=== PATIENT | female | born 1980 | race American Indian/Alaskan Native ===

== ENCOUNTER 2019-01-02 12:19 | Inpatient (IN) | payer MEDICAID, OTHER ==
[2019-01-02 12:25] VITALS: BMI 40.6
[2019-01-02] MEDS: Albuterol-Ipratrop 3 mg / 0.5 (3 ml) UD IH SCH ×3 (13:00→13:12)
--- NOTE | 2019-01-02 13:00 | ED PDOC ---
Arrival/HPI - General Chief Complaint: Shortness Of Breath Historian: Patient - History of Present Illness Narrative History of Present Illness (Text): 01/02/19 13:03 38 year old female smoker, with past medical history of diabetes, HTN and rheumatoid arthritis, presents to emergency department with complaints of shortness of breath, cough, chest tightness, and occasional nausea for the past 2 weeks. Patient reports that the symptoms started two weeks ago but improved shortly. She states that 2 days ago, she woke up in the middle of the night unable to breathe and went to [facility] where she was diagnosed with pneumonia. She was given antibiotics for CAP which she has been taking for the past 2 days. Patient also reports experiencing more regular anxiety attacks now. She notes she is currently on metformin BID. Patient denies any fevers, chills, headache, dizziness, abdominal pain, vomiting, diarrhea, back pain, neck pain, or any other complaints. Time/Duration: Other (2 weeks ) Symptom Onset: Gradual Symptom Course: Unchanged Activities at Onset: Light Context: Home Past Medical History - Provider Review Nursing Documentation Reviewed: Yes - Infectious Disease Hx of Infectious Diseases: None - Cardiac Hx Cardiac Disorders: Yes Hx Hypertension: Yes - Pulmonary Hx Respiratory Disorders: No - Neurological Hx Neurological Disorder: No - HEENT Hx HEENT Disorder: No - Renal Hx Renal Disorder: No - Endocrine/Metabolic Hx Endocrine Disorders: Yes Hx Diabetes Mellitus Type 2: Yes - Hematological/Oncological Hx Blood Disorders: No - Integumentary Hx Dermatological Disorder: No - Musculoskeletal/Rheumatological Hx Musculoskeletal Disorders: Yes Hx Rheumatoid Arthritis: Yes - Gastrointestinal Hx Gastrointestinal Disorders: No - Genitourinary/Gynecological Hx Genitourinary Disorders: No - Psychiatric Hx Psychophysiologic Disorder: No Hx Substance Use: No - Surgical History Hx Section: Yes (x1) Other/Comment: right breast - Anesthesia Hx Anesthesia Reactions: No Hx Malignant Hyperthermia: No Family/Social History - Physician Review Nursing Documentation Reviewed: Yes Family/Social History: Unknown Family HX Smoking Status: Current Some Days Smoker Hx Alcohol Use: Yes Hx Substance Use: No Allergies/Home Meds Allergies/Adverse Reactions: Allergies No Known Allergies Allergy (Verified 04/13/16 12:50) Home Medications: Home Meds Medication Instructions Recorded Confirmed Enalapril Maleate [Vasotec] 10 mg PO DAILY 04/13/16 01/02/19 Metformin HCl [Glucophage] 1,000 mg PO BID 04/13/16 01/02/19 amLODIPine [Norvasc] 5 mg PO DAILY 01/02/19 01/02/19 Review of Systems - Physician Review All systems were reviewed & negative as marked: Yes - Review of Systems Constitutional: absent: Fevers Respiratory: SOB, Cough Cardiovascular: Other (chest tightness ) Gastrointestinal: Nausea. absent: Abdominal Pain, Diarrhea, Vomiting Genitourinary Female: absent: Frequency, Hematuria, Urine Output Changes Musculoskeletal: absent: Back Pain, Neck Pain Skin: absent: Rash Neurological: absent: Headache, Dizziness Psychiatric: Anxiety (anxiety attacks ) Physical Exam Vital Signs Reviewed: Yes Vital Signs Temp Pulse Resp BP Pulse Ox 01/02/19 12:20 98.4 F 115 H 20 117/62 96 Temperature: Afebrile Blood Pressure: Normal Pulse: Tachycardic Respiratory Rate: Tachypneic Appearance: Positive for: Well-Appearing, Non-Toxic, Comfortable Pain Distress: None Mental Status: Positive for: Alert and Oriented X 3 - Systems Exam Head: Present: Atraumatic, Normocephalic Pupils: Present: PERRL Extroacular Muscles: Present: EOMI Conjunctiva: Present: Normal Mouth: Present: Moist Mucous Membranes Neck: Present: Normal Range of Motion Respiratory/Chest: Present: Decreased Breath Sounds (coarse breath sounds bilate rally ). No: Respiratory Distress, Accessory Muscle Use, Wheezes, Rales, Rhonchi Cardiovascular: Present: Regular Rate and Rhythm, Normal S1, S2. No: Murmurs Abdomen: No: Tenderness, Distention, Peritoneal Signs Back: Present: Normal Inspection Upper Extremity: Present: Normal Inspection. No: Cyanosis, Edema Lower Extremity: Present: Normal Inspection. No: Edema Neurological: Present: Speech Normal, Motor Func Grossly Intact, Normal Sensory Function Skin: Present: Warm, Dry, Normal Color. No: Rashes Psychiatric: Present: Alert, Oriented x 3, Normal Insight, Normal Concentration Medical Decision Making ED Course and Treatment: 01/02/19 13:13 Impression: 38 year old female presents to emergency department for cough, shortness of breath, and chest tightness since the past 2 weeks. Plan: -- EKG -- Labs -- Chest X-ray -- Apresoline -- Duonebs --Solumedrol --Maxipime --Azithromycin --CTPE --Ativan -- Urinalysis -- Reassess and disposition Prior Visits: Notes and results from previous visits were reviewed. Progress Notes: 01/02/19 13:53 Labs reviewed with no leukocytosis noted. CXR reveals diffuse infiltrates in lower lungs b/l consistent w/ PNA. D-dimer noted to be elevated. CTPE ordered. Case discussed with , who is aware and agrees with plan. 01/02/19 14:[address] scan without test performed due to anxiety and being unable to lie down flat. She states she needs an anxiolytic in order to allow for the test to be performed. - Lab Interpretations Lab Results: 01/02/19 12:52 01/02/19 12:52 Lab Results 01/02/19 13:00: Urine Color Yellow, Urine Appearance Clear, Urine pH 6.0, Ur Specific Irwin >= 1.030, Urine Protein 100 H, Urine Glucose (UA) Negative, Urine Ketones Negative, Urine Blood Small H, Urine Nitrate Negative, Urine Bilirubin Negative, Urine Urobilinogen 0.2, Ur Leukocyte Esterase Negative, Urine RBC 1 - 3 H, Urine WBC None, Ur Epithelial Cells 0 - 2 01/02/19 12:52: Sodium 138, Potassium 3.7, Chloride 104, Carbon Dioxide 27, Anion Gap 11, BUN 12, Creatinine 0.5 L, Est GFR ( Amer) > 60, Est GFR (Non-Af Amer) > 60, Random Glucose 187 H, Calcium 9.1, Total Bilirubin 0.4, AST 114 H, ALT 149 H, Alkaline Phosphatase 107, Total Protein 7.4, Albumin 4.0, Globulin 3.4, Albumin/Globulin Ratio 1.2 01/02/19 12:52: D-Dimer, Quantitative 502 H 01/02/19 12:52: WBC 11.0, RBC 4.77, Hgb 13.2, Hct 40.7, MCV 85.3, MCH 27.7, MCHC 32.4, RDW 14.1, Plt Count 246, MPV 12.0 H, Neut % (Auto) 61.7, Lymph % (Auto) 32.5, [place] % (Auto) 5.1, Eos % (Auto) 0.6 L, Baso % (Auto) 0.1, Lymph # (Auto) 3.6 H, [place] # (Auto) 0.6, Eos # (Auto) 0.1, Baso # (Auto) 0.01, Absolute Neuts (auto) 6.79 H I have reviewed the lab results: Yes - RAD Interpretation Narrative RAD Interpretations (Text): 01/02/19 12:36 Chest X-ray: IMPRESSION: Diffuse bilateral mid and lower lobe infiltrates. 01/02/19 13:[address]: IMPRESSION: Limited study demonstrating no definitive evidence of acute central pulmonary embolus. Prominent pulmonary trunk; rule out underlying pulmonary arterial hypertension There are bilateral upper and lower lobe infiltrates (nodular and patchy in the upper lobes and more confluent in the lower lobes). There also moderate-sized bilateral effusions Radiology Orders: 01/02/19 12:36 CHEST PORTABLE [RAD] Stat Artificial Fly Tier: Radiologist - EKG Interpretation EKG Interpretation (Text): 01/02/19 13:16 EKG: Ordered, reviewed, and independently interpreted the EKG. Rate : 119 BPM Interpretation : LVH, sinus tachycardia, flattened T wave Interpreted by ED Physician: Yes Type: 12 lead EKG - Scribe Statement The provider has reviewed the documentation as recorded by the Scribe Bety Denise All medical record entries made by the Scribe were at my direction and personally dictated by me. I have reviewed the chart and agree that the record accurately reflects my personal performance of the history, physical exam, medical decision making, and the department course for this patient. I have also personally directed, reviewed, and agree with the discharge instructions and disposition. Disposition/Present on Arrival - Present on Arrival Any Indicators Present on Arrival: No History of DVT/PE: No History of Uncontrolled Diabetes: No Urinary Catheter: No History of Decub. Ulcer: No History Surgical Site Infection Following: None - Disposition Have Diagnosis and Disposition been Completed?: Yes Diagnosis: PNA (pneumonia) Disposition: HOSPITALIZED Disposition Time: 14:18 Patient Plan: Admission Patient Problems: Current Active Problems Problem Status Onset PNA (pneumonia) Acute Condition: IMPROVED
[2019-01-02 13:05] LABS: BASO # 0.01 K/mm3 (0.0-2.0); BASO % 0.1 % (0.0-3.0); EOS # 0.1 (0.0-0.7); EOS % 0.6 % (1.5-5.0); HEMOGLOBIN 13.2 g/dL (12.0-16.0); LYMPH # 3.6 (1.2-3.4); LYMPH % 32.5 % (22.0-35.0); MEAN CELL VOLUME 85.3 fl (80.0-105.0); MEAN CORPUSCULAR HEMOGLOBIN 27.7 pg (25.0-35.0); MEAN CORPUSCULAR HGB CONC 32.4 g/dl (31.0-37.0); MONO # 0.6 (0.1-0.6); MONO % 5.1 % (1.0-6.0); RBC 4.77 10^6/uL (3.5-6.1); RED CELL DISTRIBUTION WIDTH 14.1 % (11.5-14.5)
[2019-01-02 13:16] LABS: ALB/GLOB RATIO 1.2 (1.1-1.8); ALT/SGPT 149 U/L (7-56); AST/SGOT 114 U/L (14-36); BLOOD UREA NITROGEN 12 mg/dL (7-21); CALCIUM 9.1 mg/dL (8.4-10.5); GFR NON-AFRICAN AMERICAN > 60
[2019-01-02] MEDS ORDERED: guaiFENesin 200 mg/10 ml Syrup UD PO ONE (13:18)
[2019-01-02 13:27] LABS: URINE BILIRUBIN NEGATIVE (NEGATIVE); URINE BLOOD SMALL (NEGATIVE); URINE GLUCOSE (UA) NEGATIVE (NEGATIVE); URINE LEUKOCYTE ESTERASE NEGATIVE Leu/uL (NEGATIVE); URINE PROTEIN 100 mg/dL (<30 mg/dL); URINE UROBILINOGEN 0.2 E.U./dL (<1 E.U./dL)
[2019-01-02 13:28] LABS: URINE APPEARANCE CLEAR (CLEAR); URINE COLOR YELLOW (YELLOW)
[2019-01-02] MEDS ORDERED: Iohexol 350 MG/100 ML VIAL ONE (13:29)
[2019-01-02] MEDS ORDERED: Azithromycin 500MG/NS 250ml 500 MG/250 ML BAG IVPB STA (13:29)
[2019-01-02 13:30] LABS: URINE EPITHELIAL CELLS 0 - 2 /hpf (0-5)
[2019-01-02] MEDS ORDERED: Cefepime 1gm in NS 100ml 1 GM/100 ML BAG IVPB ONE (13:33)
[2019-01-02] MEDS ORDERED: Albuterol 0.083% Inhal Sol (2.5 mg/3 mL) UD INH STA (14:14)
--- NOTE | 2019-01-02 14:55 | RAD ---
Date of service: 01/02/2019 HISTORY: Rule out pneumonia. COMPARISON: No prior. TECHNIQUE: 1 view obtained. FINDINGS: LUNGS: Diffuse bilateral mid to lower lobe infiltrates. PLEURA: No significant pleural effusion identified, no pneumothorax apparent. CARDIOVASCULAR: No aortic atherosclerotic calcification present. Normal cardiac size. No pulmonary vascular congestion. OSSEOUS STRUCTURES: No significant abnormalities. VISUALIZED UPPER ABDOMEN: Normal. OTHER FINDINGS: None. IMPRESSION: Diffuse bilateral mid and lower lobe infiltrates.
--- NOTE | 2019-01-02 15:31 | CP.PCM.HP ---
<Ronak Prieto - Last Filed: 01/02/19 15:21> History of Present Illness - History of Present Illness History of Present Illness: Medicine H&P for Dr. Tirado CC: Shortness of breath Patient is a 38 yo F with PMH of RA, DM, and HTN [place] [facility] [place] due to shortness of breath for the past two weeks. Patient states that she initially had minor dyspnea and associated cough, she believed she had a cold and tried to treat with OTC medications. However, her symptoms worsened over the 2 weeks and subsequently went [place] [facility] [place] over the last week. Most recently she went 2 days ago where she was diagnosed with a pneumonia and discharged with a Z-pack. Patient had only taken one dose of her z-pack before coming [place] [facility] [place]. She states that she feels even more short of breath and cannot stop coughing. Patient states cough is productive with yellow-green sputum. She also admits to intermittent anxiety attacks, which became more frequent over the last few days. Patient denies any recent sick contacts, recent travel, and OCP use. Furthermore, patient denies n/v/d, abdominal pain, fever, chills, NICHOLAS, dizziness, dysuria, hematuria, dysphagia, or odynophagia. PMH: RA, DM, HTN Surg: All: NKDA SH: Denies illicit drug use; Admits to social EtOH use and 1 ppd for 18 yrs FHx: Asthma-Daughter, Breast CA-grandmother, sickle cell Medications: Amlodipine, Enalapril, and Metformin Present on Admission - Present on Admission Any Indicators Present on Admission: No Review of Systems - Review of Systems All systems: reviewed and no additional remarkable complaints except (12 point ROS reviewed and is negative other than what is stated in HPI.) Past Patient History - Infectious Disease Hx of Infectious Diseases: None - Past Social History Smoking Status: Current Some Days Smoker - CARDIAC Hx Cardiac Disorders: Yes Hx Hypertension: Yes - PULMONARY Hx Respiratory Disorders: No - NEUROLOGICAL Hx Neurological Disorder: No - HEENT Hx HEENT Problems: No - RENAL Hx Chronic Kidney Disease: No - ENDOCRINE/METABOLIC Hx Endocrine Disorders: Yes Hx Diabetes Mellitus Type 2: Yes - HEMATOLOGICAL/ONCOLOGICAL Hx Blood Disorders: No - INTEGUMENTARY Hx Dermatological Problems: No - MUSCULOSKELETAL/RHEUMATOLOGICAL Hx Musculoskeletal Disorders: Yes Hx Rheumatoid Arthritis: Yes - GASTROINTESTINAL Hx Gastrointestinal Disorders: No - GENITOURINARY/GYNECOLOGICAL Hx Genitourinary Disorders: No - PSYCHIATRIC Hx Psychophysiologic Disorder: No Hx Substance Use: No - SURGICAL HISTORY Hx Section: Yes (x1) Other/Comment: right breast - ANESTHESIA Hx Anesthesia Reactions: No Hx Malignant Hyperthermia: No Meds Allergies/Adverse Reactions: Allergies Allergy/AdvReac Type Severity Reaction Status Date / Time No Known Allergies Allergy Verified 04/13/16 12:50 Physical Exam - Constitutional Appears: In Acute Distress - Head Exam Head Exam: NORMAL INSPECTION - Eye Exam Eye Exam: EOMI, Normal appearance, PERRL Pupil Exam: NORMAL ACCOMODATION - ENT Exam ENT Exam: Mucous Membranes Moist, Normal Exam - Neck Exam Neck exam: Positive for: Normal Inspection - Respiratory Exam Respiratory Exam: Decreased Breath Sounds (b/l), Rhonchi (b/l). absent: Accessory Muscle Use, Chest Wall Tenderness, Rales, Wheezes, Stridor - Cardiovascular Exam Cardiovascular Exam: Tachycardia, +S1, +S2. absent: Diastolic murmur, Gallop, Rubs, Systolic Murmur - GI/Abdominal Exam GI & Abdominal Exam: Soft. absent: Distended, Guarding, Rebound, Tenderness - Extremities Exam Extremities exam: Positive for: normal inspection - Back Exam Back exam: NORMAL INSPECTION - Neurological Exam Neurological exam: Alert, CN II-XII Intact, Oriented x3 - Psychiatric Exam Psychiatric exam: Anxious - Skin Skin Exam: Normal Color, Warm Results - Vital Signs Recent Vital Signs: Last Vital Signs Temp 98.4 F 01/02/19 12:20 Pulse 115 H 01/02/19 12:20 Resp 20 01/02/19 12:20 BP 163/113 H 01/02/19 13:28 Pulse Ox 96 01/02/19 12:20 - Labs Result Diagrams: 01/02/19 12:52 01/02/19 12:52 Labs: Laboratory Results - last 24 hr 01/02/19 01/02/19 01/02/19 12:52 12:52 12:52 WBC 11.0 RBC 4.77 Hgb 13.2 Hct 40.7 MCV 85.3 MCH 27.7 MCHC 32.4 RDW 14.1 Plt Count 246 MPV 12.0 H Neut % (Auto) 61.7 Lymph % (Auto) 32.5 Worth % (Auto) 5.1 Eos % (Auto) 0.6 L Baso % (Auto) 0.1 Lymph # (Auto) 3.6 H Worth # (Auto) 0.6 Eos # (Auto) 0.1 Baso # (Auto) 0.01 Absolute Neuts (auto) 6.79 H D-Dimer, Quantitative 502 H Sodium 138 Potassium 3.7 Chloride 104 Carbon Dioxide 27 Anion Gap 11 BUN 12 Creatinine 0.5 L Est GFR ( Amer) > 60 Est GFR (Non-Af Amer) > 60 Random Glucose 187 H Calcium 9.1 Total Bilirubin 0.4 AST 114 H ALT 149 H Alkaline Phosphatase 107 NT-Pro-B Natriuret Pep Total Protein 7.4 Albumin 4.0 Globulin 3.4 Albumin/Globulin Ratio 1.2 Urine Color Urine Appearance Urine pH Ur Specific S[place] Urine Protein Urine Glucose (UA) Urine Ketones Urine Blood Urine Nitrate Urine Bilirubin Urine Urobilinogen Ur Leukocyte Esterase Urine RBC Urine WBC Ur Epithelial Cells 01/02/19 01/02/19 12:52 13:00 WBC RBC Hgb Hct MCV MCH MCHC RDW Plt Count MPV Neut % (Auto) Lymph % (Auto) Worth % (Auto) Eos % (Auto) Baso % (Auto) Lymph # (Auto) Worth # (Auto) Eos # (Auto) Baso # (Auto) Absolute Neuts (auto) D-Dimer, Quantitative Sodium Potassium Chloride Carbon Dioxide Anion Gap BUN Creatinine Est GFR ( Amer) Est GFR (Non-Af Amer) Random Glucose Calcium Total Bilirubin AST ALT Alkaline Phosphatase NT-Pro-B Natriuret Pep 860 H Total Protein Albumin Globulin Albumin/Globulin Ratio Urine Color Yellow Urine Appearance Clear Urine pH 6.0 Ur Specific S[place] >= 1.030 Urine Protein 100 H Urine Glucose (UA) Negative Urine Ketones Negative Urine Blood Small H Urine Nitrate Negative Urine Bilirubin Negative Urine Urobilinogen 0.2 Ur Leukocyte Esterase Negative Urine RBC 1 - 3 H Urine WBC None Ur Epithelial Cells 0 - 2 Assessment & Plan - Assessment and Plan (Free Text) Assessment: 38 yo F with PMH of RA, DM, and HTN [place] [facility] [place] with dyspnea and cough likely 2/2 community-acquired pneumonia. Patient also found to have tachycardia and elevated liver enzymes, further workup is pending. Plan: 1. Community-Acquired Pneumonia - CXR shows diffuse bilateral mid and lower lobe infiltrates - CT chest pending - Strep pneumonia, Legionella, and Mycoplasma ordered - Sputum culture - Procal ordered - Robitussin prn for cough - Ceftriaxone and Azithromycin 2. Elevated D-Dimer - Chest CTA pending - R/o ACS, troponin q6h x3 pending - BNP elevated, Echo ordered 3. Tachycardia - Possibly 2/2 PE vs. drugs vs. anxiety - EKG showed sinus tachycardia at 119, T-wave inversions in I and aVL - Chest CT pending - UDS 4. Transaminitis - Acute hep panel ordered - Lipid panel ordered - Tylenol and alcohol level ordered 5. Anxiety - Cont to monitor 6. HTN - Cont Amlodipine and Lisinopril 7. DM - ISS - Accuchecks ACHS GI/DVT PPx - Protonix - Heparin Patient seen and discussed in detail with Dr. Tirado. Vinny Prieto DO PGY2 <James Tirado - Last Filed: 01/02/19 16:08> Results - Vital Signs Recent Vital Signs: Last Vital Signs Temp 98.4 F 01/02/19 12:20 Pulse 115 H 01/02/19 12:20 Resp 20 01/02/19 12:20 BP 163/113 H 01/02/19 13:28 Pulse Ox 96 01/02/19 12:20 - Labs Result Diagrams: 01/02/19 12:52 01/02/19 12:52 Labs: Laboratory Results - last 24 hr 01/02/19 01/02/19 01/02/19 12:52 12:52 12:52 WBC 11.0 RBC 4.77 Hgb 13.2 Hct 40.7 MCV 85.3 MCH 27.7 MCHC 32.4 RDW 14.1 Plt Count 246 MPV 12.0 H Neut % (Auto) 61.7 Lymph % (Auto) 32.5 [place] % (Auto) 5.1 Eos % (Auto) 0.6 L Baso % (Auto) 0.1 Lymph # (Auto) 3.6 H [place] # (Auto) 0.6 Eos # (Auto) 0.1 Baso # (Auto) 0.01 Absolute Neuts (auto) 6.79 H D-Dimer, Quantitative 502 H Sodium 138 Potassium 3.7 Chloride 104 Carbon Dioxide 27 Anion Gap 11 BUN 12 Creatinine 0.5 L Est GFR ( Amer) > 60 Est GFR (Non-Af Amer) > 60 Random Glucose 187 H Calcium 9.1 Total Bilirubin 0.4 AST 114 H ALT 149 H Alkaline Phosphatase 107 NT-Pro-B Natriuret Pep Total Protein 7.4 Albumin 4.0 Globulin 3.4 Albumin/Globulin Ratio 1.2 Urine Color Urine Appearance Urine pH Ur Specific [place] Urine Protein Urine Glucose (UA) Urine Ketones Urine Blood Urine Nitrate Urine Bilirubin Urine Urobilinogen Ur Leukocyte Esterase Urine RBC Urine WBC Ur Epithelial Cells 01/02/19 01/02/19 12:52 13:00 WBC RBC Hgb Hct MCV MCH MCHC RDW Plt Count MPV Neut % (Auto) Lymph % (Auto) [place] % (Auto) Eos % (Auto) Baso % (Auto) Lymph # (Auto) [place] # (Auto) Eos # (Auto) Baso # (Auto) Absolute Neuts (auto) D-Dimer, Quantitative Sodium Potassium Chloride Carbon Dioxide Anion Gap BUN Creatinine Est GFR ( Amer) Est GFR (Non-Af Amer) Random Glucose Calcium Total Bilirubin AST ALT Alkaline Phosphatase NT-Pro-B Natriuret Pep 860 H Total Protein Albumin Globulin Albumin/Globulin Ratio Urine Color Yellow Urine Appearance Clear Urine pH 6.0 Ur Specific [place] >= 1.030 Urine Protein 100 H Urine Glucose (UA) Negative Urine Ketones Negative Urine Blood Small H Urine Nitrate Negative Urine Bilirubin Negative Urine Urobilinogen 0.2 Ur Leukocyte Esterase Negative Urine RBC 1 - 3 H Urine WBC None Ur Epithelial Cells 0 - 2 Attending/Attestation - Attestation I have personally seen and examined this patient.: Yes I have fully participated in the care of the patient.: Yes I have reviewed all pertinent clinical information: Yes Notes (Text): 01/02/19 16:04 38 year old female with past medical history of hypertension and diabetes who presents with complaint of cough and shortness of breath. She was recently prescribed azithromycin [place] [facility] [place]. CXR and CT chest are consistent with bilateral multi-lobe pneumonia. D-Dimer was elevated but CTA is negative for PE. Will start on iv antibiotics and follow up on cultures. Obtain serial cardiac enzymes and echocardiogram. Also has elevated LFTs. Hepatitis, UDS and alcohol level ordered. James Tirado MD Hospitalist.
--- NOTE | 2019-01-02 15:44 | CT ---
Date of service: 01/02/2019 PROCEDURE: CT Chest with contrast (Pulmonary Angiogram) HISTORY: SOB w/chest pain, elevated D-dimer COMPARISON: None available. TECHNIQUE: Axial computed tomography images were obtained of the chest in the pulmonary arterial phase of enhancement. Coronal and sagittal reformatted images were created and reviewed. Intravenous contrast dose: 100 cc Omnipaque 350 contrast material. Radiation dose: Total exam DLP = 505.37 mGy-cm. This CT exam was performed using one or more of the following dose reduction techniques: Automated exposure control, adjustment of the mA and/or kV according to patient size, and/or use of iterative reconstruction technique. FINDINGS: Note that the study is somewhat limited due to large body habitus which results in significant streak and beam hardening artifact. PULMONARY ARTERIES: Visualized pulmonary trunk, right and left main lobar and proximal/mid segmental branches of the pulmonary arteries appear relatively well opacified with no definitive filling defects. The distal segmental and subsegmental branches are poorly delineated though no gross central filling defect identified.. Pulmonary trunk measures approximately 3.9 cm; rule out underlying pulmonary arterial hypertension. AORTA: No acute findings. No thoracic aortic aneurysm. Ascending thoracic aorta measures approximately 3.4 cm and descending thoracic aorta 2.25 cm no aortic atherosclerotic calcification or mural plaque present. LUNGS: There are diffuse somewhat confluent infiltrates seen in the lower lobe hancock with more patchy and somewhat nodular infiltrates in the upper lobes.. Moderate sized bilateral effusions right greater than left. PLEURAL SPACES: As above. No pneumothorax. HEART: Heart size within range of normal. No significant pericardial effusion. No cardiomegaly. No significant pericardial effusion. LYMPH NODES: No lymphadenopathy. BONES, CHEST WALL: Mild multilevel degenerative spondylosis the lower thoracic spine. There are no acute compression fractures no retropulsed fragments OTHER FINDINGS: Unremarkable. IMPRESSION: Limited study demonstrating no definitive evidence of acute central pulmonary embolus. Prominent pulmonary trunk; rule out underlying pulmonary arterial hypertension There are bilateral upper and lower lobe infiltrates (nodular and patchy in the upper lobes and more confluent in the lower lobes). There also moderate-sized bilateral effusions
[2019-01-02 16:42] LABS: TROPONIN I 0.02 ng/mL
[2019-01-02] MEDS: Insulin Lispro (humaLOG) LOW Coverage SC SCH ×2 (17:19→23:29)
[2019-01-02] MEDS ORDERED: Pneumococcal 23-Valent Vaccine IM ONE (20:37)
[2019-01-02] MEDS ORDERED: Influenza Vaccine 60 mcg/0.5 mL SYR (4YR UP) IM ONE (20:37)
[2019-01-02] MEDS: guaiFENesin 200 mg/10 ml Syrup UD PO PRN (21:54)
[2019-01-03 00:28] LABS: TROPONIN I 0.02 ng/mL
--- NOTE | 2019-01-03 05:43 | CARD ---
APPROVED REPORT Date of service: 01/02/2019 EKG Measurement Heart [id number] <Conclusion> Poor data quality, interpretation may be adversely affected Sinus tachycardia Minimal voltage criteria for LVH, may be normal variant T wave abnormality, consider lateral ischemia Abnormal ECG
[2019-01-03] MEDS: guaiFENesin 200 mg/10 ml Syrup UD PO PRN ×2 (06:08→21:39)
[2019-01-03] MEDS: Pantoprazole 40 mg EC Tab PO SCH (06:08)
[2019-01-03 08:04] LABS: BASO # 0.01 K/mm3 (0.0-2.0); BASO % 0.1 % (0.0-3.0); EOS % 0.1 % (1.5-5.0); HEMOGLOBIN 12.6 g/dL (12.0-16.0); LYMPH # 3.5 (1.2-3.4); LYMPH % 18.3 % (22.0-35.0); MEAN CELL VOLUME 85.1 fl (80.0-105.0); MEAN CORPUSCULAR HEMOGLOBIN 27.7 pg (25.0-35.0); MEAN CORPUSCULAR HGB CONC 32.6 g/dl (31.0-37.0); MEAN PLATELET VOLUME 12.7 fl (7.0-11.0); MONO % 5.2 % (1.0-6.0); RBC 4.55 10^6/uL (3.5-6.1); RED CELL DISTRIBUTION WIDTH 14.4 % (11.5-14.5); WHITE BLOOD COUNT 19.1 10^3/uL (4.5-11.0)
[2019-01-03] MEDS: Insulin Lispro (humaLOG) LOW Coverage SC SCH (08:05)
[2019-01-03 08:13] LABS: TROPONIN I 0.04 ng/mL
[2019-01-03 08:14] LABS: ALB/GLOB RATIO 1.2 (1.1-1.8); ALT/SGPT 139 U/L (7-56); AST/SGOT 79 U/L (14-36); BLOOD UREA NITROGEN 10 mg/dL (7-21); CALCIUM 9.5 mg/dL (8.4-10.5); GFR NON-AFRICAN AMERICAN > 60
[2019-01-03] MEDS: cefTRIAXone 1 gm 1 GM/100 ML BAG IVPB SCH (09:49)
--- NOTE | 2019-01-03 10:01 | CP.PCM.PN ---
Subjective - Date & Time of Evaluation Date of Evaluation: 01/03/19 Time of Evaluation: 05:00 - Subjective Subjective: seen earlier. To be dictated. benadryl ordered. Later on xopenex ordered. Objective - Vital Signs/Intake and Output Vital Signs (last 24 hours): Temp Pulse Resp BP Pulse Ox 97.3 F L 111 H 18 164/123 H 93 L 01/03/19 06:00 01/03/19 09:48 01/03/19 06:00 01/03/19 09:48 01/03/19 06:00 Intake and Output: 01/03/19 01/03/19 06:59 18:59 Intake Total 360 Balance 360 - Medications Medications: Current Medications Amlodipine Besylate (Norvasc) 5 mg PO DAILY [facility] Last Admin: 01/03/19 09:48 Dose: 5 mg Guaifenesin (Robitussin) 200 mg PO Q4H PRN PRN Reason: Cough and congestion Last Admin: 01/03/19 06:08 Dose: 200 mg Heparin Sodium (Porcine) (Heparin) 5,000 units SC Q8 [facility]; Protocol Last Admin: 01/03/19 06:08 Dose: 5,000 units Hydralazine HCl (Apresoline) 10 mg IVP STAT [facility] Last Admin: 01/02/19 13:28 Dose: 10 mg Ceftriaxone Sodium (Rocephin 1 Gram Ivpb) 1 gm in 100 mls @ 100 mls/hr IVPB DAILY [facility]; Protocol Last Admin: 01/03/19 09:49 Dose: 100 mls/hr Azithromycin (Zithromax 500mg In Ns) 500 mg in 250 mls @ 167 mls/hr IVPB DAILY [facility]; Protocol Insulin Human Lispro (Humalog Med) 0 units SC ACHS [facility]; Protocol Levalbuterol HCl (Xopenex) 1.25 mg IH [id number] PRN PRN Reason: Shortness of Breath Lisinopril (Zestril) 10 mg PO DAILY [facility] Last Admin: 01/03/19 09:48 Dose: 10 mg Pantoprazole Sodium (Protonix Ec Tab) 40 mg PO 0600 [facility] Last Admin: 01/03/19 06:08 Dose: 40 mg - Labs Labs: 01/03/19 07:00 01/03/19 07:00
[2019-01-03] MEDS: Azithromycin 500MG/NS 250ml 500 MG/250 ML BAG IVPB SCH (10:31)
--- NOTE | 2019-01-03 11:59 | CP.PCM.PN ---
<Ronak Prieto - Last Filed: 01/03/19 11:55> Subjective - Date & Time of Evaluation Date of Evaluation: 01/03/19 Time of Evaluation: 11:56 - Subjective Subjective: Medicine Progress Note for Dr. Tirado Patient seen and examined at bedside. No acute overnight events. Patient is less anxious and breathing better. Patient denies CP, n/v/d, abdominal pain, fever, chills, NICHOLAS, or dizziness. Objective - Vital Signs/Intake and Output Vital Signs (last 24 hours): Temp Pulse Resp BP Pulse Ox 97.3 F L 118 H 18 157/123 H 93 L 01/03/19 06:00 01/03/19 11:23 01/03/19 06:00 01/03/19 11:23 01/03/19 06:00 Intake and Output: 01/03/19 01/03/19 06:59 18:59 Intake Total 360 Balance 360 - Medications Medications: Current Medications Amlodipine Besylate (Norvasc) 5 mg PO DAILY [facility] Last Admin: 01/03/19 09:48 Dose: 5 mg Guaifenesin (Robitussin) 200 mg PO Q4H PRN PRN Reason: Cough and congestion Last Admin: 01/03/19 06:08 Dose: 200 mg Heparin Sodium (Porcine) (Heparin) 5,000 units SC Q8 [facility]; Protocol Last Admin: 01/03/19 06:08 Dose: 5,000 units Hydralazine HCl (Apresoline) 10 mg IVP STAT [facility] Last Admin: 01/02/19 13:28 Dose: 10 mg Ceftriaxone Sodium (Rocephin 1 Gram Ivpb) 1 gm in 100 mls @ 100 mls/hr IVPB DAILY [facility]; Protocol Last Admin: 01/03/19 09:49 Dose: 100 mls/hr Azithromycin (Zithromax 500mg In Ns) 500 mg in 250 mls @ 167 mls/hr IVPB DAILY [facility]; Protocol Last Admin: 01/03/19 10:31 Dose: 167 mls/hr Insulin Human Lispro (Humalog Med) 0 units SC ACHS [facility]; Protocol Levalbuterol HCl (Xopenex) 1.25 mg IH [id number] PRN PRN Reason: Shortness of Breath Lisinopril (Zestril) 10 mg PO DAILY [facility] Last Admin: 01/03/19 09:48 Dose: 10 mg Pantoprazole Sodium (Protonix Ec Tab) 40 mg PO 0600 [facility] Last Admin: 01/03/19 06:08 Dose: 40 mg - Labs Labs: 01/03/19 07:00 01/03/19 07:00 - Constitutional Appears: No Acute Distress - Head Exam Head Exam: NORMAL INSPECTION - Eye Exam Eye Exam: Normal appearance Pupil Exam: NORMAL ACCOMODATION - ENT Exam ENT Exam: Mucous Membranes Moist, Normal Exam - Neck Exam Neck Exam: Normal Inspection - Respiratory Exam Respiratory Exam: Rhonchi. absent: Rales, Wheezes, Respiratory Distress - Cardiovascular Exam Cardiovascular Exam: RRR, +S1, +S2. absent: Diastolic murmur, Gallop, Rubs, Murmur - GI/Abdominal Exam GI & Abdominal Exam: Soft. absent: Distended, Guarding, Tenderness, Rebound - Extremities Exam Extremities Exam: Normal Inspection - Back Exam Back Exam: NORMAL INSPECTION - Neurological Exam Neurological Exam: Alert, Awake, Oriented x3 - Psychiatric Exam Psychiatric exam: Anxious - Skin Skin Exam: Dry, Intact, Normal Color, Warm Assessment and Plan - Assessment and Plan (Free Text) Assessment: 38 yo F with PMH of RA, DM, and HTN presents to [facility] with dyspnea and cough is admitted for evaluation and treatment for 2/2 community-acquired pneumonia. Plan: 1. Community-Acquired Pneumonia - CXR shows diffuse bilateral mid and lower lobe infiltrates - CT chest shows diffuse infiltrates in mid and lower lobe b/l - Strep pneumonia, Legionella, and Mycoplasma ordered - Sputum culture pending - Procal unremarkable - Robitussin prn for cough - Ceftriaxone and Azithromycin - Xopenex prn for SOB 2. Tachycardia - Possibly 2/2 drugs vs. anxiety vs. sepsis - PE ruled out: Chest CT negative for PE, thickening of pulm artery - Echo pending - Clinically, Sepsis unlikely; leukocytosis likely 2/2 steroid in ED - EKG showed sinus tachycardia at 119, T-wave inversions in I and aVL - UDS pending 3. Elevated BNP - No clinical signs of heart failure - Chest CT revealed b/l pleural effusions and thickening of pulm artery - Echo pending 4. Transaminitis - Acute hep panel ordered - Lipid panel elevated; recommend improved diet and exercise - Tylenol and alcohol negative 5. Elevated D-Dimer; PE ruled out - Chest CTA negative for PE - Troponin 0.02, 0.02, 0.04 - BNP elevated, Echo ordered 6. Anxiety - Cont to monitor 7. HTN - Cont Amlodipine and Lisinopril 8. DM - ISS - Accuchecks ACHS GI/DVT PPx - Protonix - Heparin Patient seen and discussed in detail with Dr. Tirado. Vinny Prieto, DO PGY2 <James Tirado - Last Filed: 01/03/19 12:58> Objective - Vital Signs/Intake and Output Vital Signs (last 24 hours): Temp Pulse Resp BP Pulse Ox 97.3 F L 118 H 18 157/123 H 93 L 01/03/19 06:00 01/03/19 11:23 01/03/19 06:00 01/03/19 11:23 01/03/19 06:00 Intake and Output: 01/03/19 01/03/19 06:59 18:59 Intake Total 360 Balance 360 - Medications Medications: Current Medications Amlodipine Besylate (Norvasc) 5 mg PO DAILY [facility] Last Admin: 01/03/19 09:48 Dose: 5 mg Guaifenesin (Robitussin) 200 mg PO Q4H PRN PRN Reason: Cough and congestion Last Admin: 01/03/19 06:08 Dose: 200 mg Heparin Sodium (Porcine) (Heparin) 5,000 units SC Q8 [facility]; Protocol Last Admin: 01/03/19 06:08 Dose: 5,000 units Hydralazine HCl (Apresoline) 10 mg IVP STAT [facility] Last Admin: 01/02/19 13:28 Dose: 10 mg Ceftriaxone Sodium (Rocephin 1 Gram Ivpb) 1 gm in 100 mls @ 100 mls/hr IVPB DAILY [facility]; Protocol Last Admin: 01/03/19 09:49 Dose: 100 mls/hr Azithromycin (Zithromax 500mg In Ns) 500 mg in 250 mls @ 167 mls/hr IVPB DAILY [facility]; Protocol Last Admin: 01/03/19 10:31 Dose: 167 mls/hr Insulin Human Lispro (Humalog Med) 0 units SC ACHS [facility]; Protocol Last Admin: 01/03/19 12:12 Dose: 1 u Levalbuterol HCl (Xopenex) 1.25 mg IH [id number] PRN PRN Reason: Shortness of Breath Lisinopril (Zestril) 10 mg PO DAILY [facility] Last Admin: 01/03/19 09:48 Dose: 10 mg Pantoprazole Sodium (Protonix Ec Tab) 40 mg PO 0600 [facility] Last Admin: 01/03/19 06:08 Dose: 40 mg - Labs Labs: 01/03/19 07:00 01/03/19 07:00 Attending/Attestation - Attestation I have personally seen and examined this patient.: Yes I have fully participated in the care of the patient.: Yes I have reviewed all pertinent clinical information, including history, physical exam and plan: Yes Notes (Text): 01/03/19 12:56 38 year old female with past medical history of hypertension and diabetes who presents with complaint of cough and shortness of breath. She was recently prescribed azithromycin at [facility] for pneumonia. CXR and CT chest are consistent with bilateral multi-lobe pneumonia. D-Dimer was elevated but CTA is negative for PE. Echocardiogram is pending. Procalcitonin is not elevated. Leukocytosis noted today; may be secondary to steroids received yesterday. Will continue to monitor. Continue [facility] iv antibiotics and follow up on cultures. Transaminitis is improving. Hepatitis panel and urine drug screen are pending. Patient was counselled on exercise and diet modifications. Counselled on alcohol abstinence. James Tirado MD Hospitalist.
[2019-01-03] MEDS: Insulin Lispro (humaLOG) MEDIUM Coverage SC SCH ×3 (12:12→21:36)
[2019-01-03] MEDS: Levalbuterol 1.25 MG/3 ML Inhal Soln UD IH PRN ×2 (15:47→23:30)
[2019-01-04] MEDS: Pantoprazole 40 mg EC Tab PO SCH (06:44)
[2019-01-04 07:09] LABS: BASO # 0.01 K/mm3 (0.0-2.0); BASO % 0.1 % (0.0-3.0); EOS # 0.1 (0.0-0.7); HEMOGLOBIN 11.6 g/dL (12.0-16.0); MEAN CELL VOLUME 85.4 fl (80.0-105.0); MEAN CORPUSCULAR HEMOGLOBIN 26.9 pg (25.0-35.0); MEAN CORPUSCULAR HGB CONC 31.5 g/dl (31.0-37.0); MEAN PLATELET VOLUME 12.2 fl (7.0-11.0); MONO # 0.7 (0.1-0.6); MONO % 6.9 % (1.0-6.0); RBC 4.31 10^6/uL (3.5-6.1); RED CELL DISTRIBUTION WIDTH 14.2 % (11.5-14.5); WHITE BLOOD COUNT 10.1 10^3/uL (4.5-11.0)
[2019-01-04] MEDS: Levalbuterol 1.25 MG/3 ML Inhal Soln UD IH PRN (07:24)
[2019-01-04 07:34] LABS: ALB/GLOB RATIO 1.1 (1.1-1.8); ALBUMIN 3.5 g/dL (3.0-4.8); ALT/SGPT 95 U/L (7-56); AST/SGOT 50 U/L (14-36); BLOOD UREA NITROGEN 10 mg/dL (7-21); CALCIUM 8.6 mg/dL (8.4-10.5)
[2019-01-04 07:47] VITALS: RESP 19
[2019-01-04 08:32] LABS: GFR NON-AFRICAN AMERICAN > 60
[2019-01-04] MEDS: Insulin Lispro (humaLOG) MEDIUM Coverage SC SCH ×2 (08:33→12:05)
[2019-01-04] MEDS: Azithromycin 500MG/NS 250ml 500 MG/250 ML BAG IVPB SCH (09:36)
[2019-01-04 09:47] LABS: HEPATITIS B SURFACE AG Negative (NEGATIVE)
[2019-01-04 09:52] LABS: HEPATITIS A IGM NEGATIVE (NEGATIVE); HEPATITIS B CORE AB NEGATIVE (NEGATIVE)
[2019-01-04 10:04] LABS: HEPATITIS C ANTIBODY NEGATIVE (NEGATIVE)
[2019-01-04] MEDS: cefTRIAXone 1 gm 1 GM/100 ML BAG IVPB SCH (10:52)
[2019-01-04 13:14] LABS: BARBITURATES, UR NEGATIVE (NEGATIVE); BENZODIAZEPINES, UR NEGATIVE (NEGATIVE); OPIATES, UR NEGATIVE (NEGATIVE); PHENCYCLIDINE, UR NEGATIVE (NEGATIVE)
[2019-01-04 13:54] VITALS: BP 145/97; PULSE 100; TEMP 97.5; O2SAT 97
--- NOTE | 2019-01-04 15:49 | CP.PCM.DIS ---
<Femi Licona - Last Filed: 01/04/19 16:11> Provider - Provider Date of Admission: 01/02/19 13:55 Attending physician: James Tirado MD Primary care physician: Dr. Emerson in past, none currently Consults: 01/02/19 20:37 Inpatient CLINIC PHYSICIAN DIRECTOR Core Measures Referral Routine Comment: PNEUMONIA Physician Instructions: Reason For Exam: EVALUATION Transition In Care/Readmission Reduction Routine Comment: Physician Instructions: Reason For Exam: EVALUATION Time Spent in preparation of Discharge (in minutes): 35 Hospital Course - Lab Results Lab Results: Most Recent Lab Values WBC 10.1 10^3/uL (4.5-11.0) D 01/04/19 06:45 RBC 4.31 10^6/uL (3.5-6.1) 01/04/19 06:45 Hgb 11.6 g/dL (12.0-16.0) L 01/04/19 06:45 Hct 36.8 % (36.0-48.0) 01/04/19 06:45 MCV 85.4 fl (80.0-105.0) 01/04/19 06:45 MCH 26.9 pg (25.0-35.0) 01/04/19 06:45 MCHC 31.5 g/dl (31.0-37.0) 01/04/19 06:45 RDW 14.2 % (11.5-14.5) 01/04/19 06:45 Plt Count 214 10^3/uL (120.0-450.0) 01/04/19 06:45 MPV 12.2 fl (7.0-11.0) H 01/04/19 06:45 Neut % (Auto) 53.0 % (50.0-68.0) 01/04/19 06:45 Lymph % (Auto) 39.0 % (22.0-35.0) H 01/04/19 06:45 Pierce % (Auto) 6.9 % (1.0-6.0) H 01/04/19 06:45 Eos % (Auto) 1.0 % (1.5-5.0) L 01/04/19 06:45 Baso % (Auto) 0.1 % (0.0-3.0) 01/04/19 06:45 Lymph # (Auto) 4.0 (1.2-3.4) H 01/04/19 06:45 Pierce # (Auto) 0.7 (0.1-0.6) H 01/04/19 06:45 Eos # (Auto) 0.1 (0.0-0.7) 01/04/19 06:45 Baso # (Auto) 0.01 K/mm3 (0.0-2.0) 01/04/19 06:45 Absolute Neuts (auto) 5.38 (1.4-6.5) 01/04/19 06:45 D-Dimer, Quantitative 502 ng/mlDDU (0-243) H 01/02/19 12:52 Sodium 136 mmol/L (132-148) 01/04/19 06:45 Potassium 3.9 mmol/L (3.6-5.0) 01/04/19 06:45 Chloride 104 mmol/L (98-107) 01/04/19 06:45 Carbon Dioxide 28 mmol/L (21-33) 01/04/19 06:45 Anion Gap 8 (10-20) L 01/04/19 06:45 BUN 10 mg/dL (7-21) 01/04/19 06:45 Creatinine 0.6 mg/dl (0.7-1.2) L 01/04/19 06:45 Est GFR ( Amer) > 60 01/04/19 06:45 Est GFR (Non-Af Amer) > 60 01/04/19 06:45 POC Glucose (mg/dL) 152 mg/dL (65-110) H 01/04/19 11:08 Random Glucose 164 mg/dL (70-110) H 01/04/19 06:45 Calcium 8.6 mg/dL (8.4-10.5) 01/04/19 06:45 Phosphorus 4.3 mg/dL (2.5-4.5) 01/04/19 06:45 Magnesium 2.1 mg/dL (1.7-2.2) 01/04/19 06:45 Total Bilirubin 0.4 mg/dL (0.2-1.3) 01/04/19 06:45 AST 50 U/L (14-36) H D 01/04/19 06:45 ALT 95 U/L (7-56) H 01/04/19 06:45 Alkaline Phosphatase 84 U/L (38-126) 01/04/19 06:45 Lactate Dehydrogenase 683 U/L (333-699) 01/03/19 07:00 Total Creatine Kinase 173 U/L (35-230) 01/03/19 07:00 Troponin I 0.04 ng/mL D 01/03/19 07:00 NT-Pro-B Natriuret Pep 860 pg/mL (0-450) H 01/02/19 12:52 Total Protein 6.6 g/dL (5.8-8.3) 01/04/19 06:45 Albumin 3.5 g/dL (3.0-4.8) 01/04/19 06:45 Globulin 3.1 gm/dL 01/04/19 06:45 Albumin/Globulin Ratio 1.1 (1.1-1.8) 01/04/19 06:45 Triglycerides 127 mg/dL (35-160) 01/02/19 13:00 Cholesterol 244 mg/dL (130-200) H 01/02/19 13:00 LDL Cholesterol Direct 167 mg/dL (0-129) H 01/02/19 13:00 HDL Cholesterol 54 mg/dL (29-60) 01/02/19 13:00 Procalcitonin < 0.05 NG/ML (0.19-0.49) L 01/02/19 13:00 TSH 3rd Generation 2.37 mIU/mL (0.46-4.68) 01/02/19 13:00 Urine Color Yellow (YELLOW) 01/02/19 13:00 Urine Appearance Clear (CLEAR) 01/02/19 13:00 Urine pH 6.0 (4.7-8.0) 01/02/19 13:00 Ur Specific [place] >= 1.030 (1.005-1.035) 01/02/19 13:00 Urine Protein 100 mg/dL (<30 mg/dL) H 01/02/19 13:00 Urine Glucose (UA) Negative mg/dL (NEGATIVE) 01/02/19 13:00 Urine Ketones Negative mg/dL (NEGATIVE) 01/02/19 13:00 Urine Blood Small (NEGATIVE) H 01/02/19 13:00 Urine Nitrate Negative (NEGATIVE) 01/02/19 13:00 Urine Bilirubin Negative (NEGATIVE) 01/02/19 13:00 Urine Urobilinogen 0.2 E.U./dL (<1 E.U./dL) 01/02/19 13:00 Ur Leukocyte Esterase Negative [place]/uL (NEGATIVE) 01/02/19 13:00 Urine RBC 1 - 3 /hpf (0-2) H 01/02/19 13:00 Urine WBC None /hpf (0-6) 01/02/19 13:00 Ur Epithelial Cells 0 - 2 /hpf (0-5) 01/02/19 13:00 Urine HCG, Qual Negative (NEGATIVE) 01/04/19 12:20 Urine Opiates Screen Negative (NEGATIVE) 01/04/19 12:20 Urine Methadone Screen Negative (NEGATIVE) 01/04/19 12:20 Acetaminophen < 10.0 ug/ml (10.0-20.0) L 01/02/19 13:00 Ur Barbiturates Screen Negative (NEGATIVE) 01/04/19 12:20 Ur Phencyclidine Scrn Negative (NEGATIVE) 01/04/19 12:20 Ur Amphetamines Screen Negative (NEGATIVE) 01/04/19 12:20 U Benzodiazepines Scrn Negative (NEGATIVE) 01/04/19 12:20 U Oth Cocaine Metabols Negative (NEGATIVE) 01/04/19 12:20 U Cannabinoids Screen Negative (NEGATIVE) 01/04/19 12:20 Alcohol, Quantitative < 10 mg/dL (0-10) 01/02/19 13:00 Hepatitis A IgM Ab Negative (NEGATIVE) 01/02/19 13:00 Hep Bs Antigen Negative (NEGATIVE) 01/02/19 13:00 Hep B Core IgM Ab Negative (NEGATIVE) 01/02/19 13:00 Hepatitis C Antibody Negative (NEGATIVE) 01/02/19 13:00 - Hospital Course Hospital Course: Femi Licona, PGY-1 Discharge Summary for Hospitalist Service 38 year old female with PMHx of RA, DM, and HTN who presented with shortness of breath for the past two weeks. Patient stated that she initially had minor dyspnea and associated cough. Patient also admitted to intermittent anxiety attacks, which became more frequent over the last few days. Recent [facility] visit for pneumonia week prior, discharged on azithromycin. EKG showed sinus tachy @119 bpm with LVH and flattened T wave. CXR revealed diffuse infiltrates in lower lungs bilaterally, consistent w/ pneumonia. D Dimer was elevated at 502 and CTPE was ordered. Chest CT showed no evidence of acute PE, but did show bilateral mid and lower lobe infiltrates with bilateral effusions. It also showed thickening of pulmonary artery. Apresoline, Duonebs, Solumedrol, Maxipime were ordered. Azithromycin was continued and patient was placed on Ceftriaxone. Patient was given Robitussin for cough and was continued on Amlodipine 5mg qd and Lisinopril 10mg qd. GI PPX (Protonix) and DVT PPX (Heparin) was initiated. Xopenex 1.25mg IH q6 PRN was ordered for SOB. Troponins x3 were .02, .02, .04. Strep pneumonia, Legionella, and Mycoplasma cultures were ordered. Sputum culture was ordered. Procalcitonin was <.05. BNP was elevated at 860 and ECHO was ordered. UDS was negative. Patient's LFTs were elevated (AST 50, ALT 95) and Acute hep panel was ordered. Tylenol and alcohol levels were negative. Patient was counselled on alcohol cessation. Lipid panel was elevated and patient was recommended improved diet and exercise. Patient had mild leukocytosis with WBC 19.1, likely secondary to steroid in ED. On discharge, patient remains afebrile, and tachycardia and leukocytosis has resolved. Transaminitis is improving and could be due to multiple medications patient took for cough, all of which may contain acetaminophen. Patient ProBNP was elevated, which could be due to her bilobar pneumonia. Patient was told of importance on discharge to follow up in outpatient clinic for outpatient echocardiogram and will consider repeating proBNP at that time if warranted. Appointment was made in [facility] next week. Patient seen, case reviewed and plan approved by Dr. Kim. Discharge Exam - Additional Findings Additional findings: - Constitutional Appears: No Acute Distress - Head Exam Head Exam: NORMAL INSPECTION - Eye Exam Eye Exam: Normal appearance Pupil Exam: NORMAL ACCOMODATION - ENT Exam ENT Exam: Mucous Membranes Moist, Normal Exam - Neck Exam Neck Exam: Normal Inspection - Respiratory Exam Respiratory Exam: Rhonchi. absent: Rales, Wheezes, Respiratory Distress - Cardiovascular Exam Cardiovascular Exam: RRR, +S1, +S2. absent: Diastolic murmur, Gallop, Rubs, Murmur - GI/Abdominal Exam GI & Abdominal Exam: Soft. absent: Distended, Guarding, Tenderness, Rebound - Extremities Exam Extremities Exam: Normal Inspection - Back Exam Back Exam: NORMAL INSPECTION - Neurological Exam Neurological Exam: Alert, Awake, Oriented x3 - Psychiatric Exam Psychiatric exam: Anxious - Skin Skin Exam: Dry, Intact, Normal Color, Warm Discharge Plan - Discharge Medications Prescriptions: Amoxicillin/Potassium Clav [Augmentin 500-125 Tablet] 1 each PO BID #6 tablet - Follow Up Plan Condition: IMPROVED Disposition: HOME/ ROUTINE Instructions: Pneumonia, Adult (DC), Pneumococcal Conjugate Vaccine (13- Valent), Community-Acquired Pneumonia in Adults Additional Instructions: You have been scheduled for a follow up appointment in the [facility] on FridayJanuary 11 at 3 pm. Please arrive 30 minutes in advance and have your ID and insurance info available with you. Please complete your [facility] application in advance. Please follow up in the clinic for referral for outpatient echocardiogram and possible repeat blood work. Please take all medications, including your antibiotic Augmentin as prescribed. Please continue Vasotec, Amlodipine and Glucophage at home. If symptoms worsen or reoccur, please visit nearest emergency department. Referrals: [facility] at [facility] [Outside] <Leeann Kim - Last Filed: 01/05/19 14:36> Provider - Provider Date of Admission: 01/02/19 13:55 Attending physician: James Tirado MD Consults: 01/02/19 20:37 Inpatient CLINIC PHYSICIAN DIRECTOR Core Measures Referral Routine Comment: PNEUMONIA Physician Instructions: Reason For Exam: EVALUATION Transition In Care/Readmission Reduction Routine Comment: Physician Instructions: Reason For Exam: EVALUATION Hospital Course - Lab Results Lab Results: Most Recent Lab Values WBC 10.1 10^3/uL (4.5-11.0) D 01/04/19 06:45 RBC 4.31 10^6/uL (3.5-6.1) 01/04/19 06:45 Hgb 11.6 g/dL (12.0-16.0) L 01/04/19 06:45 Hct 36.8 % (36.0-48.0) 01/04/19 06:45 MCV 85.4 fl (80.0-105.0) 01/04/19 06:45 MCH 26.9 pg (25.0-35.0) 01/04/19 06:45 MCHC 31.5 g/dl (31.0-37.0) 01/04/19 06:45 RDW 14.2 % (11.5-14.5) 01/04/19 06:45 Plt Count 214 10^3/uL (120.0-450.0) 01/04/19 06:45 MPV 12.2 fl (7.0-11.0) H 01/04/19 06:45 Neut % (Auto) 53.0 % (50.0-68.0) 01/04/19 06:45 Lymph % (Auto) 39.0 % (22.0-35.0) H 01/04/19 06:45 Pierce % (Auto) 6.9 % (1.0-6.0) H 01/04/19 06:45 Eos % (Auto) 1.0 % (1.5-5.0) L 01/04/19 06:45 Baso % (Auto) 0.1 % (0.0-3.0) 01/04/19 06:45 Lymph # (Auto) 4.0 (1.2-3.4) H 01/04/19 06:45 Pierce # (Auto) 0.7 (0.1-0.6) H 01/04/19 06:45 Eos # (Auto) 0.1 (0.0-0.7) 01/04/19 06:45 Baso # (Auto) 0.01 K/mm3 (0.0-2.0) 01/04/19 06:45 Absolute Neuts (auto) 5.38 (1.4-6.5) 01/04/19 06:45 D-Dimer, Quantitative 502 ng/mlDDU (0-243) H 01/02/19 12:52 Sodium 136 mmol/L (132-148) 01/04/19 06:45 Potassium 3.9 mmol/L (3.6-5.0) 01/04/19 06:45 Chloride 104 mmol/L (98-107) 01/04/19 06:45 Carbon Dioxide 28 mmol/L (21-33) 01/04/19 06:45 Anion Gap 8 (10-20) L 01/04/19 06:45 BUN 10 mg/dL (7-21) 01/04/19 06:45 Creatinine 0.6 mg/dl (0.7-1.2) L 01/04/19 06:45 Est GFR ( Amer) > 60 01/04/19 06:45 Est GFR (Non-Af Amer) > 60 01/04/19 06:45 POC Glucose (mg/dL) 176 mg/dL (65-110) H 01/04/19 16:18 Random Glucose 164 mg/dL (70-110) H 01/04/19 06:45 Calcium 8.6 mg/dL (8.4-10.5) 01/04/19 06:45 Phosphorus 4.3 mg/dL (2.5-4.5) 01/04/19 06:45 Magnesium 2.1 mg/dL (1.7-2.2) 01/04/19 06:45 Total Bilirubin 0.4 mg/dL (0.2-1.3) 01/04/19 06:45 AST 50 U/L (14-36) H D 01/04/19 06:45 ALT 95 U/L (7-56) H 01/04/19 06:45 Alkaline Phosphatase 84 U/L (38-126) 01/04/19 06:45 Lactate Dehydrogenase 683 U/L (333-699) 01/03/19 07:00 Total Creatine Kinase 173 U/L (35-230) 01/03/19 07:00 Troponin I 0.04 ng/mL D 01/03/19 07:00 NT-Pro-B Natriuret Pep 860 pg/mL (0-450) H 01/02/19 12:52 Total Protein 6.6 g/dL (5.8-8.3) 01/04/19 06:45 Albumin 3.5 g/dL (3.0-4.8) 01/04/19 06:45 Globulin 3.1 gm/dL 01/04/19 06:45 Albumin/Globulin Ratio 1.1 (1.1-1.8) 01/04/19 06:45 Triglycerides 127 mg/dL (35-160) 01/02/19 13:00 Cholesterol 244 mg/dL (130-200) H 01/02/19 13:00 LDL Cholesterol Direct 167 mg/dL (0-129) H 01/02/19 13:00 HDL Cholesterol 54 mg/dL (29-60) 01/02/19 13:00 Procalcitonin < 0.05 NG/ML (0.19-0.49) L 01/02/19 13:00 TSH 3rd Generation 2.37 mIU/mL (0.46-4.68) 01/02/19 13:00 Urine Color Yellow (YELLOW) 01/02/19 13:00 Urine Appearance Clear (CLEAR) 01/02/19 13:00 Urine pH 6.0 (4.7-8.0) 01/02/19 13:00 Ur Specific [place] >= 1.030 (1.005-1.035) 01/02/19 13:00 Urine Protein 100 mg/dL (<30 mg/dL) H 01/02/19 13:00 Urine Glucose (UA) Negative mg/dL (NEGATIVE) 01/02/19 13:00 Urine Ketones Negative mg/dL (NEGATIVE) 01/02/19 13:00 Urine Blood Small (NEGATIVE) H 01/02/19 13:00 Urine Nitrate Negative (NEGATIVE) 01/02/19 13:00 Urine Bilirubin Negative (NEGATIVE) 01/02/19 13:00 Urine Urobilinogen 0.2 E.U./dL (<1 E.U./dL) 01/02/19 13:00 Ur Leukocyte Esterase Negative [place]/uL (NEGATIVE) 01/02/19 13:00 Urine RBC 1 - 3 /hpf (0-2) H 01/02/19 13:00 Urine WBC None /hpf (0-6) 01/02/19 13:00 Ur Epithelial Cells 0 - 2 /hpf (0-5) 01/02/19 13:00 Urine HCG, Qual Negative (NEGATIVE) 01/04/19 12:20 Urine Opiates Screen Negative (NEGATIVE) 01/04/19 12:20 Urine Methadone Screen Negative (NEGATIVE) 01/04/19 12:20 Acetaminophen < 10.0 ug/ml (10.0-20.0) L 01/02/19 13:00 Ur Barbiturates Screen Negative (NEGATIVE) 01/04/19 12:20 Ur Phencyclidine Scrn Negative (NEGATIVE) 01/04/19 12:20 Ur Amphetamines Screen Negative (NEGATIVE) 01/04/19 12:20 U Benzodiazepines Scrn Negative (NEGATIVE) 01/04/19 12:20 U Oth Cocaine Metabols Negative (NEGATIVE) 01/04/19 12:20 U Cannabinoids Screen Negative (NEGATIVE) 01/04/19 12:20 Alcohol, Quantitative < 10 mg/dL (0-10) 01/02/19 13:00 Hepatitis A IgM Ab Negative (NEGATIVE) 01/02/19 13:00 Hep Bs Antigen Negative (NEGATIVE) 01/02/19 13:00 Hep B Core IgM Ab Negative (NEGATIVE) 01/02/19 13:00 Hepatitis C Antibody Negative (NEGATIVE) 01/02/19 13:00 Ur L.pneumophila Ag Negative (NEGATIVE) 01/04/19 12:20 Attending/Attestation - Attestation I have personally seen and examined this patient.: Yes I have fully participated in the care of the patient.: Yes I have reviewed all pertinent clinical information, including history, physical exam and plan: Yes Notes (Text): 01/05/19 14:30 Medical record note made by the resident after discussion with my direction and input after the patient was personally seen and examined by me. I have reviewed the chart and agree that the record accurately reflects by personal performance of the history, physical exam, data review, and medical decision-making, in the course for the patient. I have also personally directed the plan of care. 38 year old female with past medical history of hypertension and diabetes who presents with complaint of cough and shortness of breath. She was recently prescribed azithromycin at [facility] for pneumonia. CXR and CT chest are consistent with bilateral multi-lobe pneumonia. D-Dimer was elevated but CTA is negative for PE. . Procalcitonin is not elevated. Leukocytosis has improved.Patient is afebrile and is on room air.Cultures are negative for any growth. Patient will be discharged home on oral Augmentin. Transaminitis are improving. Hepatitis panel is negative . Patient has elevated pro BNP buit clinicaly she is not in heart failure.She is on room air and is ambulatory, does not has leg edema. She will need 2D eCHO OUT PATIENT. She will also need repeat LFT in one week. Counselled on alcohol abstinence. Management plan was discussed in detail with patient. Education was provided. 01/05/19 14:33
[2019-01-04] MEDS ORDERED: Pneumococcal 23-Valent Vaccine IM ONE (17:40)
== END 2019-01-04 20:24 | disposition home or self-care (01) | DRG 139 ==
LOC: ED 12:19 → ERH 13:55 → 5RNO 16:32
PROVIDERS: ADMIT Internal Medicine; ATTEND Internal Medicine
PROC: 3E0F7GC Introduction of Other Therapeutic Substance into Respiratory Tract, Via Natural or Artificial Opening (ICD-10-PCS; principal; 2019-01-03)
DX: J18.1 Lobar pneumonia, unspecified organism (principal); I10 Essential (primary) hypertension; E11.9 Type 2 diabetes mellitus without complications; F41.1 Generalized anxiety disorder; D72.829 Elevated white blood cell count, unspecified; T38.0X5A Adverse effect of glucocorticoids and synthetic analogues, initial encounter; M06.9 Rheumatoid arthritis, unspecified; F17.200 Nicotine dependence, unspecified, uncomplicated; Z87.01 Personal history of pneumonia (recurrent)